=== PATIENT | female | born 1960 | race Caucasian/White ===

== ENCOUNTER 2016-08-03 11:24 | Observation (INO) ==
--- NOTE | 2016-08-03 12:15 | Emergency Department Note ---
Disposition Clinical Impression: Atypical chest pain, TIA (transient ischemic attack), Vertigo Disposition: Admitted As Inpatient Condition: Fair Referrals: NO,PCP [Primary Care Provider] - Forms: ED Satisfaction Letter Time of Disposition: 14:18 ([facility] gato ochoame[facility]) Chest Pain HPI - General Chief Complaint: ED Chest Pain Stated Complaint: chest pain, weakness rt side Time Seen by Provider: 08/03/16 11:54 Source: patient Mode of arrival: ambulatory Limitations: no limitations Vital Signs Reviewed: Yes Nursing Notes Reviewed: Yes - History of Present Illness HPI Narrative: 56-year-old female 3:00 this morning woke up had noted right-sided weakness had trouble getting up and walking but she says when she changes position she felt like the room was spinning in 100 miles an hour she denies any blurred vision double vision or loss of vision she said the dizziness is still persistent at this time she denies any diarrhea melena hematochezia or hematemesis she denies any trauma patient states that this morning what prompted her to come in as she started having a little bit of chest pain in addition to the dizziness she denies that anything makes it better anything that makes it worse she denies any rashes or lesions she has contacted family who is brought her here to the emergency room Family tells me though that she was markedly weak and dizzy act as though she was having trouble getting her balance and tended to drift to the right not to the left base stated this went on which is what prompted her to encourage her to come to the ER Pt complaint: chest pain 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 Denies: nausea, vomiting, diaphoresis, dyspnea, sense of impending doom, syncope, palpitations, fever, cough, leg swelling Treatments prior to arrival chest pain: none - Related Data Home Medications Medication Instructions Recorded Confirmed Ranitidine HCl [Zantac] 150 mg PO AD 08/03/16 08/03/16 Allergies Allergy/AdvReac Type Severity Reaction Status Date / Time meperidine [From Demerol] Allergy Unconscious Verified 08/03/16 11:37 All systems ED: reviewed and negative except as stated. Constitutional: Reports: weakness (right side) Eyes: Denies: eye pain, eye discharge ENT ED: Denies: ear pain, throat pain Cardiovascular: Reports: chest pain. Denies: palpitations Respiratory: Denies: cough, dyspnea, wheezes Gastrointestinal: Denies: abdominal pain, nausea, vomiting Genitourinary: Denies: urgency, dysuria Musculoskeletal: Denies: back pain, neck pain Integumentary: Denies: rash, abrasion Neurological: Reports: weakness, vertigo. Denies: headache Psychiatric: Denies: anxiety Endocrine: Denies: fatigue Hematological/Lymphatic: Denies: easy bleeding Allergic/Immunologic: Denies: facial swelling Chest Pain PMH - Past Medical History Medical history: Reports: other Psychiatric history: Reports: no psych history - Social History Smoking Status: Never smoker Alcohol use: Reports: none Drug use: Reports: none Physical Exam - General Limitations: no limitations General appearance: alert, in no apparent distress, anxious - Head Head exam: atraumatic, normocephalic, normal inspection, other (No facial asymmetry noted) - Eye Eye exam: Present: normal appearance, PERRL, EOMI - ENT ENT exam: normal exam, normal oropharynx, mucous membranes moist, normal external ear exam - Neck Neck exam: Present: normal inspection, full ROM, trachea midline, other (No bruit). Absent: meningismus, lymphadenopathy - Chest Chest inspection: Present: normal inspection, symmetric chest wall rise - Respiratory Respiratory exam: Present: normal lung sounds bilaterally. Absent: respiratory distress, prolonged expiratory phase - Cardiovascular Cardiovascular exam: Present: regular rate, normal rhythm, normal heart sounds - Abdominal Exam Abdominal exam: Present: soft, Non-Tender, normal bowel sounds - Expanded Upper Extremity Exam Shoulder exam: Present: normal inspection, full ROM, other (Right hand dominant slightly weaker than the left but upon return from radiology reexamination reveals symmetrical strength right and left) Arm exam: Present: normal inspection, full ROM Elbow exam: Present: normal inspection, full ROM Forearm/Wrist exam: Present: normal inspection, full ROM Hand exam: Present: normal inspection, full ROM Neurosensory exam: Normal: radial nerve, ulnar nerve, median nerve Vascular exam: Normal: capillary refill, radial pulse, ulnar pulse - Expanded Lower Extremity Exam Hip/Pelvis exam: Present: normal inspection Upper leg exam: Present: normal inspection, full ROM Knee exam: Present: normal inspection, full ROM Lower leg exam: Present: normal inspection, full ROM Ankle exam: Present: normal inspection, full ROM Foot/toe exam: Present: normal inspection, full ROM Neurovascular/Tendon exam: Present: normal capillary refill, normal fine/light touch, other (Patient has a little bit of weakness raising the right leg a little bit slower than the left foot is symmetrical good pedal push and COMPLETELY resolved upon return from radiology). Absent: motor deficit, sensory deficit, tendon deficit Gait: observed and normal - Back Exam Back exam: Present: normal inspection, full ROM. Absent: muscle spasm - Neurological Exam Neurological exam: Present: alert, oriented X3, CN II-XII intact - Psychiatric Psychiatric exam: Present: normal affect, normal mood - Skin Skin exam: Present: warm, dry, intact, normal color Course Course Narrative: She presents to the emergency room 7 hours after the initial onset of symptoms complaining of dizziness weakness of difficulty walking patient's taken a CAT scan upon returning from CAT scan patient has complete faculties about her weakness no difficulty raising her talking speaking or any focal weakness Vital Signs Temperature 97.5 F L 08/03/16 11:38 Pulse Rate 61 08/03/16 11:38 Respiratory Rate 15 08/03/16 11:38 Blood Pressure 140/79 08/03/16 11:38 O2 Sat by Pulse Oximetry 100 08/03/16 11:38 Temperature 97.5 F L 08/03/16 11:44 Pulse Rate 72 08/03/16 12:32 Respiratory Rate 13 08/03/16 12:32 Blood Pressure 132/92 08/03/16 12:32 O2 Sat by Pulse Oximetry 98 08/03/16 12:32 Oxygen Delivery Oxygen Delivery Room Air Chest Pain - MDM Narrative Medical decision making narrative: Concerns or stroke vertigo - Differential Diagnosis Likely: chest pain - Medical Records Medical records reviewed: Yes I reviewed the patient's medical records. - Lab Data Lab results reviewed: Yes I reviewed the patient's lab results. Result diagrams: 08/03/16 12:30 Lab Results 08/03/16 08/03/16 08/03/16 Range/Units 12:24 12:24 12:24 WBC (4.3-11.1) K/mcL RBC (3.82-4.97) M/mcL Hgb (11.5-15.4) g/dL Hct (35.3-44.9) % MCV (83.0-100.0) fL MCH (28.0-33.3) pg MCHC (31.6-35.5) g/dL RDW (11.5-14.5) % Plt Count (140-400) K/mcL MPV (9.4-12.4) fL Immature Gran % (0-4) % Seg Neutrophils % % Lymphocytes % % Monocytes % % Eosinophils % % Basophils % % Neutrophils # (1.6-8.9) K/mcL Lymphocytes # (0.6-4.6) K/mcL Monocytes # (0.0-1.3) K/mcL Eosinophils # (0.0-0.6) K/mcL Basophils # (0.0-0.2) K/mcL PT 12.3 H (9.4-12.1) Seconds INR 1.1 APTT 32.0 (26.0-36.0) Seconds Troponin I 0.01 (0-0.03) ng/mL B-Natriuretic Peptide (0-100) pg/mL TSH 1.243 (0.350-4.840) mcIU/mL Urine Color (Yellow) Urine Clarity (Clear) Urine pH (5.0-8.0) pH Units Ur Specific [place] (1.010-1.025) Urine Protein (Neg-Trace) mg/dL Urine Glucose (UA) (Normal) mg/dL Urine Ketones (Negative) mg/dL Urine Blood (Negative) Urine Nitrite (Negative) Urine Bilirubin (Negative) Urine Urobilinogen (Normal) mg/dL Ur Leukocyte Esterase (Negative) Urine Microscopic RBC (0-3) per hpf Urine Microscopic WBC (0-3) per hpf Ur Squamous Epith Cells (None-Few) per lpf Ur Culture Indicated? (NO) 08/03/16 08/03/16 08/03/16 Range/Units 12:24 12:30 12:31 WBC 7.7 (4.3-11.1) K/mcL RBC 4.44 (3.82-4.97) M/mcL Hgb 12.8 (11.5-15.4) g/dL Hct 37.8 (35.3-44.9) % MCV 85.1 (83.0-100.0) fL MCH 28.8 (28.0-33.3) pg MCHC 33.9 (31.6-35.5) g/dL RDW 12.1 (11.5-14.5) % Plt Count 252 (140-400) K/mcL MPV 10.1 (9.4-12.4) fL Immature Gran % 0.4 (0-4) % Seg Neutrophils % 79.4 % Lymphocytes % 15.0 % Monocytes % 4.0 % Eosinophils % 0.8 % Basophils % 0.4 % Neutrophils # 6.2 (1.6-8.9) K/mcL Lymphocytes # 1.2 (0.6-4.6) K/mcL Monocytes # 0.3 (0.0-1.3) K/mcL Eosinophils # 0.1 (0.0-0.6) K/mcL Basophils # 0.0 (0.0-0.2) K/mcL PT (9.4-12.1) Seconds INR APTT (26.0-36.0) Seconds Troponin I (0-0.03) ng/mL B-Natriuretic Peptide 25 (0-100) pg/mL TSH (0.350-4.840) mcIU/mL Urine Color Yellow (Yellow) Urine Clarity Clear (Clear) Urine pH 7.5 (5.0-8.0) pH Units Ur Specific [place] 1.015 (1.010-1.025) Urine Protein Negative (Neg-Trace) mg/dL Urine Glucose (UA) Normal (Normal) mg/dL Urine Ketones Negative (Negative) mg/dL Urine Blood Negative (Negative) Urine Nitrite Negative (Negative) Urine Bilirubin Negative (Negative) Urine Urobilinogen Normal (Normal) mg/dL Ur Leukocyte Esterase Trace H (Negative) Urine Microscopic RBC 0-3 (0-3) per hpf Urine Microscopic WBC 0-3 (0-3) per hpf Ur Squamous Epith Cells Few (None-Few) per lpf Ur Culture Indicated? YES A (NO) - Radiology Data Radiology results reviewed: Yes I reviewed the patient's radiology results. ITS Impressions Head CT 08/03/16 11:40 IMPRESSION: No acute intracranial abnormality. D/ / Hernesto Bloom MD / Hernesto Bloom MD Interpreting Provider: Hernesto Bloom MD Chest X-Ray 08/03/16 12:11 IMPRESSION: No acute cardiopulmonary process. D/ / 08/03/2016 12:53:56 [facility] Inter[facility] Provider: Hernesto Bloom MD - EKG Data EKG attestation: Yes I reviewed and interpreted this EKG. EKG results narrative: Normal sinus rhythm rate 65 AL 146 QRS 105 QT 417 axes 21 Heart Score - Score History: Slightly Suspicious EKG: Normal Age: 45-65 Risk Factors: 1-2 risk factors Troponin: Less than normal limit HEART Score Total: 2 Critical Care Time Critical Care Time: No
[2016-08-03 12:31] LABS: Basophils % 0.4 %; Eosinophils # 0.1 K/mcL (0.0-0.6); Eosinophils % 0.8 %; Hematocrit 37.8 % (35.3-44.9); Hemoglobin 12.8 g/dL (11.5-15.4); Immature Granulocytes % 0.4 % (0-4); Lymphocytes # 1.2 K/mcL (0.6-4.6); Mean Corpuscular HGB Conc 33.9 g/dL (31.6-35.5); Mean Corpuscular Hemoglobin 28.8 pg (28.0-33.3); Mean Corpuscular Volume 85.1 fL (83.0-100.0); Mean Platelet Volume 10.1 fL (9.4-12.4); Monocytes # 0.3 K/mcL (0.0-1.3); Neutrophils # 6.2 K/mcL (1.6-8.9); Platelet Count 252 K/mcL (140-400); Red Blood Count 4.44 M/mcL (3.82-4.97); Red Cell Distribution Width 12.1 % (11.5-14.5); Segmented Neutrophils % 79.4 %
[2016-08-03 12:39] LABS: INR 1.1; Prothrombin Time 12.3 Seconds (9.4-12.1)
[2016-08-03 12:56] LABS: Bilirubin,Urine Negative (Negative); Blood,Urine Negative (Negative); Clarity,Urine Clear (Clear); Color,Urine Yellow (Yellow); Glucose,Urine (UA) Normal (Normal); Ketones,Urine Negative (Negative); Leukocyte Esterase,Urine Trace (Negative); Nitrite,Urine Negative (Negative); PH,Urine 7.5 pH Units (5.0-8.0); Protein,Urine Negative (Neg-Trace); Specific Gravity,Urine 1.015 (1.010-1.025); Urobilinogen,Urine Normal (Normal)
[2016-08-03 13:07] LABS: RBC,Urine 0-3 per hpf (0-3); Squamous Epithelial Cell,Urine Few per lpf (None-Few); WBC,Urine 0-3 per hpf (0-3)
[2016-08-03 13:51] LABS: Alanine Aminotransferase 14 Units/L (0-55); Albumin 3.8 g/dL (3.5-5.0); Albumin/Globulin Ratio 1.1 (1.1-2.2); Alkaline Phosphatase 51 Units/L (38-126); Aspartate Amino Transferase 19 Units/L (5-34); BUN/Creatinine Ratio 16 (6-26); Bilirubin,Total 0.5 mg/dL (0.2-1.2); Blood Urea Nitrogen 13 mg/dL (7-20); Calcium 9.8 mg/dL (8.6-10.8); Carbon Dioxide 26 mEq/L (19-29); Chloride 107 mEq/L (98-109); Globulin 3.4 g/dL (2.4-3.5); Glucose 124 mg/dL (70-99); Osmolality,Calculated 290 (280-300); Potassium 3.9 mEq/L (3.5-4.5); Sodium 139 mEq/L (136-145); Total Protein 7.2 g/dL (6.0-8.3); eGFR For African Americans > 60 (> 60); eGFR For Non-African Americans > 60 (> 60)
[2016-08-03] MEDS ORDERED: Aspirin 81 MG TAB.CHEW PO ONE (14:19)
[2016-08-03] MEDS ORDERED: Naloxone 0.4 MG/ML INJ IVP PRN (15:28)
[2016-08-03] MEDS ORDERED: Ondansetron 4 MG/2 ML VIAL IVP PRN (15:28)
[2016-08-04 05:33] LABS: Basophils % 0.5 %; Eosinophils # 0.3 K/mcL (0.0-0.6); Eosinophils % 4.8 %; Hematocrit 35.8 % (35.3-44.9); Hemoglobin 12.1 g/dL (11.5-15.4); Lymphocytes # 2.3 K/mcL (0.6-4.6); Lymphocytes % 41.6 %; Mean Corpuscular HGB Conc 33.8 g/dL (31.6-35.5); Mean Corpuscular Volume 85.9 fL (83.0-100.0); Mean Platelet Volume 10.4 fL (9.4-12.4); Monocytes # 0.5 K/mcL (0.0-1.3); Monocytes % 8.1 %; Neutrophils # 2.5 K/mcL (1.6-8.9); Platelet Count 237 K/mcL (140-400); Red Blood Count 4.17 M/mcL (3.82-4.97); Red Cell Distribution Width 12.3 % (11.5-14.5)
[2016-08-04 05:40] LABS: INR 1.1; Prothrombin Time 12.1 Seconds (9.4-12.1)
[2016-08-04 05:43] LABS: Activated Partial Thrombo Time 29.9 Seconds (26.0-36.0)
[2016-08-04 05:54] LABS: BUN/Creatinine Ratio 20 (6-26); Blood Urea Nitrogen 16 mg/dL (7-20); Calcium 8.8 mg/dL (8.6-10.8); Carbon Dioxide 25 mEq/L (19-29); Chloride 109 mEq/L (98-109); Chol/HDL Ratio 3.8 (0-4.9); Cholesterol 190 mg/dL (< 200); Glucose 93 mg/dL (70-99); HDL Cholesterol 50 mg/dL (40-59); LDL Cholesterol,Calculated 127 mg/dL (0-99); Magnesium 2.1 mg/dL (1.6-2.6); Osmolality,Calculated 295 (280-300); Phosphorous 3.9 mg/dL (2.3-4.7); Sodium 142 mEq/L (136-145); Triglycerides 65 mg/dL (< 150); eGFR For African Americans > 60 (> 60); eGFR For Non-African Americans > 60 (> 60)
[2016-08-04] MEDS: Aspirin Enteric Coated 81 MG Tablet PO SCH (07:58)
--- NOTE | 2016-08-04 14:51 | Internal Med History&Physical ---
Date of Encounter: 08/04/16 Time of Encounter: 14:10 Assessment and Plan (1) TIA (transient ischemic attack) Current visit: Yes Status: Acute Suspect left MCA branch distribution TIA. She will be started on antiplatelet agents and carotid ultrasound will be ordered. Further workup be done as needed. Qualifiers: Transient cerebral ischemia type: carotid artery syndrome (hemispheric) Qualified Code(s): G45.1 - Carotid artery syndrome (hemispheric) Internal Medicine - H&P: HPI Chief complaint: Right sided weakness with vertigo Admitted From: Home Plans for Post Hospital Care: Home History of present illness: Ms. Morejon is a 56 year old female who came to the emergency room stating she had awakened approximately 0300 day of admission to let her dog out. As she was walking through the house she reports feeling "lopsided". She seemed to have some slight weakness of her right arm and leg. She reports her speech was "slow" and she had word search phenomena. She went back to bed upon returning and noticed vertigo sensation on lying down. After sleeping for an additional hour she awakened and felt nauseated. She reports vertigo still present and there was some residual weakness of her right arm and leg. She called off from work. She came to the emergency room a few hours later when her daughter came to the house. Her daughter reports there seemed to be some slight facial asymmetry when she arrived at the house. She was evaluated in emergency room and admitted to [facility] for ongoing care needs. She reports somewhat similar but less severe and shorter duration episodes 8 months ago and another one 4 months prior to that. She denies large distribution strokes or seizures. She has not had recent syncopal or near syncopal episodes. She does not have diagnosis of migraine headaches or other neurologic problems. Past Med Surg Social Fam HX - Past Medical History Medical history: other Psychiatric history: no psych history - Past Surgical History Surgical History: , hysterectomy - Social History Smoking Status: Never smoker Smokeless Tobacco Status: No Alcohol use: none Drug use: none Internal Medicine - H&P: Meds Ranitidine HCl [Zantac] 150 mg PO AD 08/03/16 [History] Allergies meperidine [From Demerol] Allergy (Verified 08/03/16 11:37) Unconscious All Systems PM: A 10-system review of systems was performed and is negative for pertinent findings except as documented above in the HPI. Review of systems: Gen.: She reports her weight has been stable the past few months Cardiovascular: She denies HI hypertension heart failure angina DVT or pulmonary embolus Respiratory: She is a lifelong nonsmoker and has no known chronic lung disease GI: She has occasional GERD symptoms. She denies disorders of her liver gallbladder or exocrine pancreas : She denies hematuria dysuria or kidney stones Neurologic: As per history of present illness Endocrine: She denies diabetes thyroid disease or hyperlipidemia. She feels occasional hypoglycemic with some generalized weakness but no neurologic symptoms similar to those of history of present illness Hematology/oncology: She denies blood disorders cancers or anemia Psychiatric: She denies anxiety depression or other mental health issues Musk skeletal: She has DJD with back pain but denies other bone joint or muscle disorders. - Constitutional Vitals: Temp Pulse Resp BP Pulse Ox 98.2 F 72 16 110/58 97 08/04/16 10:46 08/04/16 10:46 08/04/16 10:46 08/04/16 10:46 08/04/16 10:46 Exam: Gen.: She is a well-developed well-nourished female who appears in no acute distress at present time HEENT: Head is a atraumatic and normocephalic. Eyes: EOMI. There is no scleral icterus. Mouth: Mucosa is moist. Neck: Supple and nontender. There is no thyromegaly or adenopathy noted. Heart: Regular without murmurs gallops or ectopics Lungs: No wheezes or crackles are heard. Abdomen: Soft and nontender. No masses or guarding noted. Extremities: There is no cyanosis edema or clubbing noted. Dorsalis pedis and posttibial pulses are 1-2 over 2 bilaterally. Neurologic: Mental status: She is talkative and a good historian. Cranial nerves: Smile is symmetric. Forehead wrinkles bilaterally. Tongue protrudes midline. EOMI. She has no reproduction of symptoms on modified Hallpike maneuver or own [id number] head turning. Motor: There is no pronator drift. She is able to lift both legs off the bed. Ankle flexion and extension strength against resistance is normal. Rapid finger movement showed normal speed with symmetry. Cerebellar: Finger to nose is intact bilaterally. Skin: Warm and dry Internal Med - H&P Results - Labs CBC & Chem 7: 08/04/16 04:48 08/04/16 04:48 Labs: Short CBC 08/04/16 Range/Units 04:48 WBC 5.6 (4.3-11.1) K/mcL Hgb 12.1 (11.5-15.4) g/dL Hct 35.8 (35.3-44.9) % Plt Count 237 (140-400) K/mcL Neutrophils # 2.5 (1.6-8.9) K/mcL BMP 08/04/16 04:48 Sodium 142 Potassium 4.0 Chloride 109 Carbon Dioxide 25 BUN 16 Creatinine 0.80 Glucose 93 Calcium 8.8 Cardiac Enzymes 08/03/16 08/04/16 Range/Units 17:13 00:15 Troponin I 0.01 0.01 (0-0.03) ng/mL
[2016-08-05] MEDS: Aspirin Enteric Coated 81 MG Tablet PO SCH (08:47)
--- NOTE | 2016-08-05 10:34 | Internal Med Progress Note ---
Date of Encounter: 08/05/16 Time of Encounter: 10:25 - Assessment and plan (1) TIA (transient ischemic attack) Current Visit: Yes Status: Acute Assessment and plan: Continue aspirin. Carotid ultrasound to be done August 06. Anticipate discharge home after procedure performed if results unremarkable. Qualifiers: Transient cerebral ischemia type: carotid artery syndrome (hemispheric) Qualified Code(s): G45.1 - Carotid artery syndrome (hemispheric) - Subjective Interval history: August 05. She has no new complaints and feels back to her baseline. She has had no additional episodes of TIA. - Constitutional Vitals: Temp Pulse Resp BP Pulse Ox 97.7 F 65 16 106/70 97 08/05/16 07:33 08/05/16 07:33 08/05/16 07:33 08/05/16 07:33 08/05/16 07:33 Exam: She is resting comfortably in bed. Her affect is bright and cheerful. Her speech is normal. I reviewed her medications and lab results. Internal Medicine: Result - Labs CBC & Chem 7: 08/04/16 04:48 08/04/16 04:48 - ABG Interpretation ABG results: PT/INR, D-dimer PT 12.1 Seconds (9.4-12.1) 08/04/16 04:48 Consult Discharge Plan - Plan Referrals: NO,PCP [Primary Care Provider] - 1 week
--- NOTE | 2016-08-05 20:37 | Electrocardiograph Report ---
[place] [address] Test Date: 2016-08-03 Pat Name: Iris Morejon Department: 9201 Room: [facility] Gender: F Robot Programmer: : 1960 Requested By: Hernesto August Order Number: [id number] Reading MD: Brendan Gill MD Measurements Intervals [place] Rate: 65 P: 49 AK: 146 QRS: 21 QRSD: 105 T: 13 QT: 417 QTc: 428 Interpretive Statements SINUS RHYTHM Electronically Signed On 08-05-2016 20:35:47 EDT by Brendan Gill MD
[2016-08-06] MEDS ORDERED: Nitroglycerin 0.4 MG TAB.SUBL SL ONE (00:44)
[2016-08-06] MEDS: Nitroglycerin 0.4 MG TAB.SUBL SL PRN ×2 (00:48→01:00)
[2016-08-06] MEDS ORDERED: 0.9 % Sodium Chloride 1,000 ML ONE (01:12)
[2016-08-06] MEDS ORDERED: 0.9 % Sodium Chloride 1,000 ML IV ONE (02:26)
[2016-08-06] MEDS ORDERED: Lisinopril 20 MG TABLET PO SCH (09:00)
[2016-08-06] MEDS: Aspirin Enteric Coated 81 MG Tablet PO SCH (09:14)
--- NOTE | 2016-08-06 10:20 | Carotid Imaging Report ---
Carotid Duplex Patient Name:Iris Morejon Order Number:[id number] Procedure Date:08/06/2016 Date:1960Age:56 yrs Gender:Female Lt BP:123 / 77 mmHg Rt.BP:116 / 72 mmHgHeart Rate: Location:[facility] Room #: 50 Anesthesiology Physician Assistant:Augustine May JAJA Referring MD:Hernesto August MD Reading MD:Kevan Young MD , FACS Primary Indications:Occlusion and stenosis of carotid artery without mention of cerebral infarction Impressions: Findings: Bilateral proximal ICA has a moderate, 40-59% stenosis. Findings Carotid Duplex: Right: The right proximal common carotid artery has a PSV of 120 cm/s and a EDV of 21 cm/s. The right mid common carotid artery has a PSV of 113 cm/s and a EDV of 35 cm/s. The right distal common carotid artery has a PSV of 116 cm/s and a EDV of 31 cm/s. The right bifurcation has a PSV of 115 cm/s and a EDV of 29 cm/s. The right proximal internal carotid artery has a PSV of 101 cm/s and a EDV of 31 cm/s. There is smooth heterogeneous plaque. There is 40-59% stenosis in the right mid internal carotid artery with a PSV of 125 cm/s and a EDV of 49 cm/s. There is smooth heterogeneous plaque. The right distal internal carotid artery has a PSV of 86 cm/s and a EDV of 31 cm/s. There is smooth heterogeneous plaque. The right eca has a PSV of 110 cm/s and a EDV of 15 cm/s. The right vertebral artery has a PSV of 65 cm/s and a EDV of 23 cm/s. Left: The left proximal common carotid artery has a PSV of 106 cm/s and a EDV of 23 cm/s. The left mid common carotid artery has a PSV of 124 cm/s and a EDV of 32 cm/s. The left distal common carotid artery has a PSV of 111 cm/s and a EDV of 31 cm/s. The left bifurcation has a PSV of 100 cm/s and a EDV of 25 cm/s. There is 40-59% stenosis in the left proximal internal carotid artery with a PSV of 128 cm/s and a EDV of 37 cm/s. There is smooth heterogeneous plaque. There is 40-59% stenosis in the left mid internal carotid artery with a PSV of 122 cm/s and a EDV of 45 cm/s. There is smooth heterogeneous plaque. The left distal internal carotid artery has a PSV of 94 cm/s and a EDV of 34 cm/s. There is smooth heterogeneous plaque. The left eca has a PSV of 85 cm/s and a EDV of 14 cm/s. The left vertebral artery has a PSV of 54 cm/s and a EDV of 18 cm/s. Prior Study: No prior study available for comparison. Carotid Results Right PSV EDV Assessment Proximal CCA 120 21 Normal Mid CCA 113 35 Normal Distal CCA 116 31 Normal Bifurcation 115 29 Normal Proximal ICA 101 31 Non Stenotic Plaque Mid ICA 125 49 40-59% stenosis Distal ICA 86 31 Non Stenotic Plaque ECA 110 15 Normal Vertebral Artery 65 23 Normal Left PSV EDV Assessment Proximal CCA 106 23 Normal Mid CCA 124 32 Normal Distal CCA 111 31 Normal Bifurcation 100 25 Normal Proximal ICA 128 37 40-59% stenosis Mid ICA 122 45 40-59% stenosis Distal ICA 94 34 Non Stenotic Plaque ECA 85 14 Normal Vertebral Artery 54 18 Normal Ratio's Right ICA/CCA Ratio: 1.10 ICA/CCA Values: 125/113 Left ICA/CCA Ratio: 1.03 ICA/CCA Values: 128/124 Updated by Kevan Young MD, FACS on 08/06/2016 10:14:18 AM Kevan Young MD electronically signed on 08/06/2016 10:15:06 AM with status of Final
--- NOTE | 2016-08-06 11:28 | Internal Med Progress Note ---
Date of Encounter: 08/06/16 Time of Encounter: 11:15 - Assessment and plan (1) TIA (transient ischemic attack) Current Visit: Yes Status: Acute Assessment and plan: August 05. Continue aspirin. Carotid ultrasound to be done August 06. Anticipate discharge home after procedure performed if results unremarkable. August 06. Continue aspirin. She can be referred as an outpatient to vascular surgery for an opinion regarding carotid endarterectomy Qualifiers: Transient cerebral ischemia type: carotid artery syndrome (hemispheric) Qualified Code(s): G45.1 - Carotid artery syndrome (hemispheric) - Subjective Interval history: August 05. She has no new complaints and feels back to her baseline. She has had no additional episodes of TIA. August 06. She complains of some tightness sensation in her chest and discomfort in her posterior neck area. She was given SL nitroglycerin during the night for sensation of chest tightness and had hypotension. - Constitutional Vitals: Temp Pulse Resp BP Pulse Ox 97.7 F 92 18 112/70 98 08/06/16 10:47 08/06/16 10:47 08/06/16 10:47 08/06/16 10:47 08/06/16 10:47 Exam: She is resting in bed and appears in minimal distress. Her neck is supple and there is no pain on flexion or side to side movement. There is no pronator drift. Finger to nose is intact bilaterally. Rapid finger movements are symmetric. I reviewed her lab and medications. I reviewed the ultrasound report showing moderate bilateral ICA stenosis. Internal Medicine: Result - Labs CBC & Chem 7: 08/04/16 04:48 08/04/16 04:48 Labs: Cardiac Enzymes 08/06/16 08/06/16 Range/Units 01:30 07:35 Troponin I 0.01 0.01 (0-0.03) ng/mL - ABG Interpretation ABG results: PT/INR, D-dimer PT 12.1 Seconds (9.4-12.1) 08/04/16 04:48 Consult Discharge Plan - Plan Referrals: NO,PCP [Primary Care Provider] - 1 week
[2016-08-06 14:04] LABS: BUN/Creatinine Ratio 11 (6-26); Blood Urea Nitrogen 8 mg/dL (7-20); Calcium 8.9 mg/dL (8.6-10.8); Carbon Dioxide 24 mEq/L (19-29); Chloride 109 mEq/L (98-109); Glucose 115 mg/dL (70-99); Osmolality,Calculated 291 (280-300); Potassium 3.9 mEq/L (3.5-4.5); Sodium 141 mEq/L (136-145); eGFR For African Americans > 60 (> 60); eGFR For Non-African Americans > 60 (> 60)
[2016-08-07 07:19] VITALS: BP 95/60
[2016-08-07] MEDS: Aspirin Enteric Coated 81 MG Tablet PO SCH (08:18)
--- NOTE | 2016-08-07 08:19 | Electrocardiograph Report ---
[address] [address] Test Date: 2016-08-05 Pat Name: Iris Morejon Department: 9202 Room: [facility] Gender: F Target Protection Specialist: Víctor : 1960 Requested By: Hernesto August Order Number: [id number] Reading MD: Power Joe MD Measurements Intervals [place] Rate: 82 P: 57 MA: 140 QRS: 57 QRSD: 81 T: 56 QT: 397 QTc: 435 Interpretive Statements SINUS RHYTHM Electronically Signed On 08-07-2016 8:18:14 EDT by Power Joe MD
--- NOTE | 2016-08-07 10:44 | Discharge Summary ---
Date of Encounter: 08/07/16 Time of Encounter: 10:25 - Discharge Diagnosis (1) TIA (transient ischemic attack) Priority: Primary Status: Resolved Qualifiers: Transient cerebral ischemia type: carotid artery syndrome (hemispheric) Qualified Code(s): G45.1 - Carotid artery syndrome (hemispheric) - Discharge Medications Home Medications: Ranitidine HCl [Zantac] 150 mg PO AD 08/03/16 [History] Aspirin Enteric Coated [Aspirin EC] 81 mg PO DAILY tablet. 08/07/16 [Rx] Allergies/Adverse Reactions: Allergies meperidine [From Demerol] Allergy (Verified 08/03/16 11:37) Unconscious Procedures/tests Complete & Pending: Procedures Performed prior 72 hours Category Date Time Status MR angio head wo con [MR] Routine MRI 08/06/16 12:28 Completed MR angio neck wo/w con [MR] Routine MRI 08/06/16 Taken MR head/brain wo con [MR] Routine MRI 08/06/16 Taken EKG [ECG 12 lead ECG] [ECG] Routine Y 08/07/16 04:46 Completed EKG [ECG 12 lead ECG] [ECG] Stat Y 08/06/16 00:50 Completed EV carotid duplex imaging BI Routine Y 08/04/16 14:43 Completed Date of admission: 08/03/16 15:18 Primary care physician: PCP NO - Patient Status Disposition: Home, Self-Care Condition: Fair Functional capacity at discharge: independent ambulation Overall status at discharge: patient is progressing back to baseline - Discharge Instructions Follow Up With: Ana Cristina Boudreaux [Advanced Practice Nurse] - 1 week - Diet and Activity Activity: resume usual activities as tolerated Diet: advance to your usual diet Hospital course: Ms. Morejon is a 56 year old female who came to the emergency room stating she had awakened approximately 0300 day of admission to let her dog out. As she was walking through the house she reports feeling "lopsided". She seemed to have some slight weakness of her right arm and leg. She reports her speech was "slow" and she had word search phenomena. She went back to bed upon returning and noticed vertigo sensation on lying down. After sleeping for an additional hour she awakened and felt nauseated. She reports vertigo still present and there was some residual weakness of her right arm and leg. She called off from work. She came to the emergency room a few hours later when her daughter came to the house. Her daughter reports there seemed to be some slight facial asymmetry when she arrived at the house. She was evaluated in emergency room and admitted to [facility] for ongoing care needs. She reports somewhat similar but less severe and shorter duration episodes 8 months ago and another one 4 months prior to that. She denies large distribution strokes or seizures. She has not had recent syncopal or near syncopal episodes. She does not have diagnosis of migraine headaches or other neurologic problems. Initial orders were written by the emergency room physician. I saw her on August 04 and performed the history and physical. She was given a dose of Plavix was started on daily aspirin 81 mg daily. A carotid ultrasound was ordered to further evaluate. Ultrasound was read as moderate proximal bilateral ICA stenosis of 40-59%. She developed a headache and tightness in her chest the night of August 05 and director of early childhood hours of August 06. Repeat cardiac enzymes showed no evidence of myocardial damage. Repeat EKG showed no evidence of ischemia. A brain MRI/MRA was done to further evaluate the headaches and intracerebral vasculature. There was no significant stenosis or aneurysm seen on the study. The internal carotid arteries did not appear to show even the moderate stenosis seen on the carotid ultrasound. She felt improved on August 07 and I felt was stable for discharge home. She will continue aspirin 81 mg daily for now. She chose to follow with Ana Cristina Boudraeux CNP to be seen within one week. - Time Spent with Patient Total time spent providing and/or coordinating discharge services: - Constitutional Vitals: Temp Pulse Resp BP Pulse Ox 98.3 F 72 18 95/60 96 08/07/16 07:16 08/07/16 07:16 08/07/16 07:16 08/07/16 07:16 08/07/16 08:24
--- NOTE | 2016-08-08 09:09 | Electrocardiograph Report ---
[address] [id number] Test Date: 2016-08-07 Pat Name: Iris Morejon Department: [id number] Room: [facility] Gender: F [employer] Manager: Víctor : 1960 Requested By: Hernesto August Order Number: [id number] Reading MD: Power Joe MD Measurements Intervals Daisy Rate: 63 P: 58 KS: 159 QRS: 26 QRSD: 81 T: 19 QT: 416 QTc: 423 Interpretive Statements SINUS RHYTHM Electronically Signed On 08-08-2016 9:07:34 EDT by Power Joe MD
== END 2016-08-07 11:19 | disposition home or self-care (01) ==
LOC: INPPIK 11:24 → EMEROOPIK 11:24 → INPPIK 15:22
PROVIDERS: ADMIT Emergency Medicine; ATTEND Internal Medicine

== ENCOUNTER 2019-03-28 20:22 | Observation (INO) ==
[2019-03-28] MEDS ORDERED: Acetaminophen 325 MG TABLET PO PRN (22:09)
[2019-03-28] MEDS ORDERED: traZODone 50 MG TABLET PO PRN (22:10)
[2019-03-29] MEDS ORDERED: *HR* Enoxaparin 40 MG/0.4 ML SYRINGE SQ SCH (06:00)
[2019-03-29 06:44] LABS: Basophils % 0.5 %; Eosinophils # 0.2 K/mcL (0.0-0.6); Eosinophils % 4.1 %; Hematocrit 37.4 % (35.3-44.9); Hemoglobin 12.6 g/dL (11.5-15.4); Immature Granulocytes % 0.2 % (0-4); Lymphocytes # 1.5 K/mcL (0.6-4.6); Lymphocytes % 25.9 %; Mean Corpuscular HGB Conc 33.7 g/dL (31.6-35.5); Mean Corpuscular Hemoglobin 29.8 pg (28.0-33.3); Mean Corpuscular Volume 88.4 fL (83.0-100.0); Mean Platelet Volume 10.8 fL (9.4-12.4); Monocytes # 0.7 K/mcL (0.0-1.3); Monocytes % 11.5 %; Neutrophils # 3.4 K/mcL (1.6-8.9); Platelet Count 217 K/mcL (140-400); Red Blood Count 4.23 M/mcL (3.82-4.97); Segmented Neutrophils % 57.8 %; White Blood Count 5.9 K/mcL (4.3-11.1)
[2019-03-29 07:06] LABS: Alanine Aminotransferase 11 Units/L (7-52); Albumin/Globulin Ratio 1.4 (1.1-2.2); Alkaline Phosphatase 53 Units/L (34-104); Aspartate Amino Transferase 15 Units/L (13-39); BUN/Creatinine Ratio 13 (6-26); Bilirubin,Total 0.6 mg/dL (0.3-1.0); Blood Urea Nitrogen 10 mg/dL (6-20); Calcium 9.2 mg/dL (8.6-10.3); Carbon Dioxide 27 mEq/L (23-29); Chloride 108 mEq/L (98-107); Globulin 2.8 g/dL (2.4-3.5); Glucose 95 mg/dL (70-105); Osmolality,Calculated 291 (280-300); Potassium 3.6 mEq/L (3.5-5.1); Sodium 141 mEq/L (136-145); Total Protein 6.8 g/dL (6.4-8.9); eGFR For African Americans > 60 (> 60); eGFR For Non-African Americans > 60 (> 60)
[2019-03-29 07:17] LABS: Thyroid Stimulating Hormone 2.876 mcIU/mL (0.340-5.600)
[2019-03-29 11:09] VITALS: BP 112/72
[2019-03-29] MEDS ORDERED: Aspirin 81 MG TAB.CHEW PO SCH (21:00)
== END 2019-03-29 13:30 | disposition home or self-care (01) ==
LOC: INPPIK
PROVIDERS: ADMIT Internal Medicine; ATTEND Internal Medicine